=== PATIENT | male | born 1985 | race Caucasian/White ===

== ENCOUNTER 2023-04-29 08:12 | Emergency (ER) | payer BC ==
[2023-04-29] MEDS ORDERED: Sodium Chloride 0.9% 10 ML Syringe FLUSH PRN (08:17)
[2023-04-29 08:29] LABS: BASOPHILS ABSOLUTE AUTO 0.1 K/mm3 (0.0-0.2); BASOPHILS PERCENT AUTO 0.7 % (0.0-1.0); EOSINOPHILS ABSOLUTE AUTO 0.2 K/mm3 (0.0-0.4); EOSINOPHILS PERCENT AUTO 2.1 % (0.0-6.0); HEMATOCRIT 49.5 % (42.0-52.0); HEMOGLOBIN 17.4 gm/dl (14.0-18.0); IMMATURE GRAN ABSOLUTE AUTO 0.13 K/mm3 (0.00-0.05); IMMATURE GRAN PERCENT AUTO 1.3 % (0.0-0.4); LYMPHOCYTES ABSOLUTE AUTO 3.1 K/mm3 (1.0-4.8); MEAN CORPUSCULAR HEMOGLOBIN 30.4 pg (28.0-32.0); MEAN CORPUSCULAR HGB CONC 35.2 g/dl (32.0-36.0); MEAN CORPUSCULAR VOLUME 86.4 fl (83.0-99.0); MEAN PLATELET VOLUME 11.7 fl (9.4-12.4); MONOCYTES ABSOLUTE AUTO 0.6 K/mm3 (0.0-0.8); MONOCYTES PERCENT AUTO 5.8 % (0.0-8.0); NEUTROPHILS PERCENT AUTO 59.1 % (41.0-71.0); NRBC ABSOLUTE 0.02 (0.00-0.02); NRBC PERCENT 0.2 % (0.0-0.2); PLATELET COUNT,PLT 229 K/mm3 (150-400); RED BLOOD CELL COUNT 5.73 M/mm3 (4.52-5.90); WHITE BLOOD CELL COUNT,WBC 10.13 K/mm3 (3.9-11.3)
[2023-04-29] MEDS ORDERED: Sodium Chloride 0.9% 1,000 ML IV SCH (08:30)
[2023-04-29] MEDS ORDERED: Ondansetron 4 MG/2 ML SDV ONE (09:08)
[2023-04-29 09:18] LABS: A/G RATIO 1.1 (1-2); ALANINE AMINOTRANSFERASE,ALT 269 U/L (16-63); ALBUMIN 3.4 g/dl (3.4-5.0); ALKALINE PHOSPHATASE 56 U/L (46-116); ANION GAP 17.2 (5-15); ASPARTATE AMNIOTRANSFERASE,AST 204 U/L (15-37); BILIRUBIN TOTAL 0.6 mg/dL (0.2-1.0); BLOOD UREA NITROGEN,BUN 8 mg/dL (7-18); BUN/CREATININE RATIO 6.2 (14-18); CALCIUM 8.6 mg/dL (8.5-10.1); CARBON DIOXIDE,CO2 23 mEq/L (21-32); CHLORIDE,CL 105 mEq/L (98-107); CREATININE 1.3 mg/dL (0.7-1.3); ESTIMATED GFR 73 mL/min (>60); GLUCOSE RANDOM 175 mg/dL (70-99); MAGNESIUM 1.7 mg/dL (1.8-2.4); POTASSIUM,K 3.2 mEq/L (3.5-5.1); PROTEIN TOTAL,TP 6.6 g/dl (6.4-8.2); SODIUM,NA 142 mEq/L (136-145)
[2023-04-29 09:23] LABS: TROPONIN I HIGH SENSITIVITY 93 pg/mL (<=76)
[2023-04-29] MEDS ORDERED: Magnesium Sulfate/Water 2 GM in Premix Bag 1 BAG IV ONE (09:24)
[2023-04-29] MEDS ORDERED: Metoprolol Tartrate 5 MG/5 ML SDV ONE (09:24)
[2023-04-29] MEDS ORDERED: Metoprolol Tartrate 5 MG/5 ML SDV IVPUSH ONE (09:25)
[2023-04-29] MEDS ORDERED: Magnesium Sulfate/Water 50 ML ONE (09:29)
[2023-04-29] MEDS ORDERED: Potassium Chloride 10 MEQ in Premix Bag 1 BAG IV SCH (09:30)
== END 2023-04-29 10:30 | disposition home or self-care (01) ==
LOC: JD.ED 08:12
DX: I46.9 Cardiac arrest, cause unspecified (principal); E87.6 Hypokalemia; E83.42 Hypomagnesemia; I49.3 Ventricular premature depolarization; Z79.899 Other long term (current) drug therapy
CPT/HCPCS: 36415; 36680; 70450; 71045; 80053; 82947; 83735; 84484; 85025; 93005; 96365; 96366; 96368; 96375; 99285; J0282; J3475; J3480; J3490; J7030; 93010; 99284

== ENCOUNTER 2024-08-18 16:53 | Emergency (ER) | payer BC ==
[2024-08-18] MEDS ORDERED: Sodium Chloride 0.9% 10 ML Syringe FLUSH PRN (17:22)
[2024-08-18 18:16] LABS: BASOPHILS PERCENT AUTO 0.2 % (0.0-1.0); EOSINOPHILS PERCENT AUTO 0.2 % (0.0-6.0); HEMATOCRIT 44.5 % (42.0-52.0); HEMOGLOBIN 15.2 gm/dl (14.0-18.0); IMMATURE GRAN ABSOLUTE AUTO 0.05 K/mm3 (0.00-0.05); IMMATURE GRAN PERCENT AUTO 0.5 % (0.0-0.4); LYMPHOCYTES PERCENT AUTO 9.2 % (24.0-44.0); MEAN CORPUSCULAR HEMOGLOBIN 29.9 pg (28.0-32.0); MEAN CORPUSCULAR HGB CONC 34.2 g/dl (32.0-36.0); MEAN CORPUSCULAR VOLUME 87.4 fl (83.0-99.0); MEAN PLATELET VOLUME 10.7 fl (9.4-12.4); MONOCYTES ABSOLUTE AUTO 1.2 K/mm3 (0.0-0.8); NEUTROPHILS ABSOLUTE AUTO 8.5 K/mm3 (1.8-7.7); NEUTROPHILS PERCENT AUTO 78.9 % (41.0-71.0); PLATELET COUNT,PLT 148 K/mm3 (150-400); RED BLOOD CELL COUNT 5.09 M/mm3 (4.52-5.90)
[2024-08-18] MEDS: VANCOmycin 2 GM/400 ML 2 GM in Premix Bag 1 BAG IV ONE (18:28)
[2024-08-18] MEDS: Cefepime 2 GM Vial IVPUSH ONE (18:28)
[2024-08-18 18:39] LABS: ALANINE AMINOTRANSFERASE,ALT 36 U/L (16-63); ALBUMIN 3.7 g/dl (3.4-5.0); ALKALINE PHOSPHATASE 53 U/L (46-116); ANION GAP 14.2 (5-15); ASPARTATE AMNIOTRANSFERASE,AST 26 U/L (15-37); BILIRUBIN TOTAL 1.3 mg/dL (0.2-1.0); BLOOD UREA NITROGEN,BUN 14 mg/dL (7-18); C-REACTIVE PROTEIN 14.82 mg/dL (<0.30); CALCIUM 9.3 mg/dL (8.5-10.1); CARBON DIOXIDE,CO2 25 mEq/L (21-32); CHLORIDE,CL 101 mEq/L (98-107); CREATININE 1.4 mg/dL (0.7-1.3); ESTIMATED GFR 66 mL/min (>60); GLUCOSE RANDOM 129 mg/dL (70-99); POTASSIUM,K 3.2 mEq/L (3.5-5.1); PROTEIN TOTAL,TP 7.5 g/dl (6.4-8.2); SODIUM,NA 137 mEq/L (136-145)
[2024-08-18] MEDS ORDERED: Acetaminophen 325 MG Tab PO PRN (18:39)
[2024-08-18 18:46] LABS: LACTIC ACID 1.7 mmol/L (0.4-2.0)
[2024-08-18] MEDS ORDERED: Sodium Chloride 0.9% 1,000 ML IV SCH (19:30)
[2024-08-18] MEDS ORDERED: Potassium Chloride 20 MEQ Tab.ER PO ONE (21:00)
[2024-08-19] MEDS ORDERED: Cefepime 2 GM Vial IVPUSH SCH (02:00)
[2024-08-19] MEDS ORDERED: Enoxaparin 40 MG/0.4 ML Syringe SUBCUT SCH (09:00)
== END 2024-08-18 20:10 | disposition critical access hospital (66) ==
LOC: JD.ED 16:53
DX: L03.211 Cellulitis of face (principal); D84.9 Immunodeficiency, unspecified; F17.210 Nicotine dependence, cigarettes, uncomplicated; Z79.899 Other long term (current) drug therapy
CPT/HCPCS: 36415; 80053; 83605; 83735; 85025; 86140; 87040; 96374; 99284-25; 99285; J0692; J3372

== ENCOUNTER 2024-08-18 18:39 | Inpatient (IN) | payer BC ==
[2024-08-18] MEDS: Acetaminophen 325 MG Tab PO PRN (22:42)
[2024-08-18] MEDS: Metoprolol Succinate 50 MG Tab.ER PO SCH (22:44)
[2024-08-18] MEDS: Potassium Chloride 20 MEQ Tab.ER PO ONE (23:23)
[2024-08-18] MEDS: Sodium Chloride 0.9% 1,000 ML IV SCH (23:23)
[2024-08-19] MEDS: VANCOmycin 2 GM/400 ML 2 GM in Premix Bag 1 BAG IV SCH (02:52)
[2024-08-19] MEDS: Cefepime 2 GM Vial IVPUSH SCH (03:05)
[2024-08-19 04:46] LABS: BASOPHILS PERCENT AUTO 0.4 % (0.0-1.0); EOSINOPHILS ABSOLUTE AUTO 0.1 K/mm3 (0.0-0.4); EOSINOPHILS PERCENT AUTO 0.7 % (0.0-6.0); HEMATOCRIT 43.5 % (42.0-52.0); HEMOGLOBIN 14.7 gm/dl (14.0-18.0); IMMATURE GRAN ABSOLUTE AUTO 0.04 K/mm3 (0.00-0.05); IMMATURE GRAN PERCENT AUTO 0.4 % (0.0-0.4); LYMPHOCYTES ABSOLUTE AUTO 1.5 K/mm3 (1.0-4.8); MEAN CORPUSCULAR HEMOGLOBIN 29.6 pg (28.0-32.0); MEAN CORPUSCULAR HGB CONC 33.8 g/dl (32.0-36.0); MEAN CORPUSCULAR VOLUME 87.7 fl (83.0-99.0); MEAN PLATELET VOLUME 10.8 fl (9.4-12.4); MONOCYTES ABSOLUTE AUTO 1.7 K/mm3 (0.0-0.8); MONOCYTES PERCENT AUTO 17.7 % (0.0-8.0); NEUTROPHILS ABSOLUTE AUTO 6.4 K/mm3 (1.8-7.7); NEUTROPHILS PERCENT AUTO 65.8 % (41.0-71.0); PLATELET COUNT,PLT 123 K/mm3 (150-400); RED BLOOD CELL COUNT 4.96 M/mm3 (4.52-5.90); WHITE BLOOD CELL COUNT,WBC 9.66 K/mm3 (3.9-11.3)
[2024-08-19 05:13] LABS: A/G RATIO 0.9 (1-2); ALBUMIN 3.2 g/dl (3.4-5.0); ANION GAP 11.9 (5-15); BUN/CREATININE RATIO 11.8 (14-18); C-REACTIVE PROTEIN 15.68 mg/dL (<0.30); CALCIUM 9.2 mg/dL (8.5-10.1); CREATININE 1.1 mg/dL (0.7-1.3); EST CRCL DRUG DOSING (CG) 102.9 mL/min; POTASSIUM,K 3.9 mEq/L (3.5-5.1); PROTEIN TOTAL,TP 6.9 g/dl (6.4-8.2)
[2024-08-19 06:00] LABS: SLIDE REVIEW ABNORMAL SMEAR
[2024-08-19] MEDS: VANCOmycin 1.25 GM/250 ML 1.25 GM in Premix Bag 1 BAG IV SCH (06:10)
[2024-08-19] MEDS ORDERED: VANCOmycin 2 GM/400 ML 2 GM in Premix Bag 1 BAG IV SCH (07:00)
[2024-08-19] MEDS: Enoxaparin 40 MG/0.4 ML Syringe SUBCUT SCH (11:35)
[2024-08-19] MEDS ORDERED: Non-Formulary Medication 1 Each (Febuxostat [Febuxostat] 40 MG Tablet) PO SCH (21:00)
[2024-08-20 04:38] LABS: BASOPHILS PERCENT AUTO 0.5 % (0.0-1.0); EOSINOPHILS ABSOLUTE AUTO 0.2 K/mm3 (0.0-0.4); EOSINOPHILS PERCENT AUTO 3.6 % (0.0-6.0); HEMOGLOBIN 14.3 gm/dl (14.0-18.0); IMMATURE GRAN ABSOLUTE AUTO 0.04 K/mm3 (0.00-0.05); IMMATURE GRAN PERCENT AUTO 0.6 % (0.0-0.4); LYMPHOCYTES ABSOLUTE AUTO 1.4 K/mm3 (1.0-4.8); LYMPHOCYTES PERCENT AUTO 20.6 % (24.0-44.0); MEAN CORPUSCULAR HEMOGLOBIN 29.6 pg (28.0-32.0); MEAN PLATELET VOLUME 10.2 fl (9.4-12.4); MONOCYTES ABSOLUTE AUTO 1.2 K/mm3 (0.0-0.8); MONOCYTES PERCENT AUTO 17.9 % (0.0-8.0); NEUTROPHILS ABSOLUTE AUTO 3.8 K/mm3 (1.8-7.7); NEUTROPHILS PERCENT AUTO 56.8 % (41.0-71.0); PLATELET COUNT,PLT 126 K/mm3 (150-400); RED BLOOD CELL COUNT 4.83 M/mm3 (4.52-5.90); WHITE BLOOD CELL COUNT,WBC 6.66 K/mm3 (3.9-11.3)
[2024-08-20 05:40] LABS: ANION GAP 11.9 (5-15); C-REACTIVE PROTEIN 8.51 mg/dL (<0.30); EST CRCL DRUG DOSING (CG) 113.19 mL/min; POTASSIUM,K 3.9 mEq/L (3.5-5.1)
[2024-08-20 06:25] LABS: SLIDE REVIEW ABNORMAL SMEAR
== END 2024-08-20 13:01 | disposition home or self-care (01) | DRG 383 ==
LOC: JD.MS 18:39
PROVIDERS: ADMIT Family Medicine; ATTEND Family Medicine
DX: L03.221 Cellulitis of neck (principal); L03.211 Cellulitis of face; M10.9 Gout, unspecified; G47.33 Obstructive sleep apnea (adult) (pediatric); E66.9 Obesity, unspecified; Z68.42 Body mass index [BMI] 45.0-49.9, adult; Z90.49 Acquired absence of other specified parts of digestive tract; Z98.890 Other specified postprocedural states; Z79.899 Other long term (current) drug therapy
CPT/HCPCS: 36415; 80048; 80053; 80202; 85025; 86140; A9270-GY; J0692; J1650; J3372; J7030